=== PATIENT | female | born 1985 ===

== ENCOUNTER 2017-10-03 03:48 | Emergency (ER) | payer MEDICAID ==
[2017-10-03 04:04] VITALS: TEMP 97.6
--- NOTE | 2017-10-03 04:09 | ED PDOC ---
HPI: Psych/Substance Abuse Time Seen by Provider: 10/03/17 04:08 Chief Complaint (Nursing): Alcohol Ingestion Chief Complaint (Provider): alcohol ingestion History Per: Patient (32 y/o female here for alcohol intoxication. Patient was notd vomiting after drinking excessively. EMS brought patient to ED. Patient denies any ccomplaint.Accompanied by partner who states patient has not had any head injury/assault/etc.) Past Medical History Reviewed: Historical Data, Nursing Documentation, Vital Signs Vital Signs: Last Vital Signs Temp 97.6 F 10/03/17 04:01 Pulse 100 H 10/03/17 04:01 Resp 18 10/03/17 04:01 BP 149/79 10/03/17 04:01 Pulse Ox 91 L 10/03/17 04:01 - Surgical History Surgical History: (x1) - Family History Family History: States: Unknown Family Hx - Home Medications Home Medications: Ambulatory Orders Medication Instructions Recorded Azithromycin [Zithromax] 250 mg PO DAILY #6 tablet 02/23/16 Ibuprofen [Motrin] 600 mg PO TID #15 tab 02/23/16 - Allergies Allergies/Adverse Reactions: Allergies Allergy/AdvReac Type Severity Reaction Status Date / Time No Known Allergies Allergy Verified 10/03/17 04:00 Review of Systems ROS Statement: Except As Marked, All Systems Reviewed And Found Negative Physical Exam - Reviewed Nursing Documentation Reviewed: Yes Vital Signs Reviewed: Yes - Physical Exam Appears: Positive for: Well, Non-toxic, No Acute Distress Head Exam: Positive for: ATRAUMATIC, NORMAL INSPECTION, NORMOCEPHALIC Skin: Positive for: Normal Color, Warm, DRY Eye Exam: Positive for: EOMI, Normal appearance, PERRL ENT: Positive for: Normal ENT Inspection Neck: Positive for: Normal, Painless ROM Cardiovascular/Chest: Positive for: Regular Rate, Rhythm Respiratory: Positive for: CNT, Normal Breath Sounds Gastrointestinal/Abdominal: Positive for: Normal Exam, Bowel Sounds, Soft Back: Positive for: Normal Inspection Extremity: Positive for: Normal ROM Neurologic/Psych: Positive for: Alert, Oriented - ECG O2 Sat by Pulse Oximetry: 91 - Progress ED Course And Treament: zofran 4mg IM x 1 dose repeat O2 100%. Disposition - Clinical Impression Clinical Impression: Alcohol intoxication - Patient ED Disposition Is Patient to be Admitted: Transfer of Care - Disposition Disposition: Transfer of Care Disposition Time: 06:00 Condition: FAIR Forms: [facility] (Greenlandic) Patient Signed Over To: Janis Rodney Handoff Comments: pending sobriety
[2017-10-03 05:11] VITALS: BP 121/69; PULSE 80; RESP 16
[2017-10-03 05:23] VITALS: O2SAT 91
--- NOTE | 2017-10-03 06:47 | ED PDOC ---
Arrival/HPI - General Chief Complaint: Alcohol Ingestion Time Seen by Provider: 10/03/17 04:08 Past Medical History - Psychiatric Hx Substance Use: No - Surgical History Hx Section: Yes (x1) Other/Comment: KIDNEY DONATION - Anesthesia Hx Anesthesia: Yes Hx Anesthesia Reactions: No Family/Social History Smoking Status: Never Smoked Hx Alcohol Use: No Hx Substance Use: No Allergies/Home Meds Allergies/Adverse Reactions: Allergies No Known Allergies Allergy (Verified 10/03/17 04:00) Physical Exam Vital Signs Temp Pulse Resp BP Pulse Ox 10/03/17 05:58 91 L 10/03/17 05:11 80 16 121/69 100 10/03/17 04:01 97.6 F 100 H 18 149/79 91 L Finger Stick Blood Glucose: 90 Medical Decision Making ED Course and Treatment: Time: 06:44 Patient is alert, awake, has a steady gait and is stable for discharge. 10/03/17 06:46 Reassessment Condition: Improved - Lab Interpretations Lab Results: Lab Results 10/03/17 05:30: Alcohol, Quantitative 139 H - Medication Orders Current Medication Orders: Discontinued Medications Ondansetron HCl (Zofran Inj) 4 mg IM ONCE ONE Stop: 10/03/17 05:57 Disposition/Present on Arrival - Disposition Have Diagnosis and Disposition been Completed?: Yes Diagnosis: Alcohol intoxication Disposition: HOME/ ROUTINE Disposition Time: 06:44 Patient Problems: Current Active Problems Problem Status Onset Alcohol intoxication Acute Condition: GOOD Discharge Instructions (ExitCare): Alcohol Intoxication (DC) Referrals: [facility] [place] [Outside]
== END 2017-10-03 06:57 | disposition home or self-care (01) ==
LOC: H.ER 03:48
DX: F10.129 Alcohol abuse with intoxication, unspecified (principal)